=== PATIENT | male | born 1940 | race Caucasian/White ===

== ENCOUNTER 2018-08-31 11:46 | Emergency (ER) | payer OTHER ==
[~2018-08-31] VITALS: Ht 167.6 cm; Wt 81.6 kg
[2018-08-31 11:53] VITALS: Ht 167.6 cm; Wt 81.6 kg
[2018-08-31 16:14] VITALS: BP 192/86
== END 2018-08-31 16:14 | disposition home or self-care (01) ==
LOC: ED 11:46
DX: S69.91XA Unspecified injury of right wrist, hand and finger(s), initial encounter (principal); S99.921A Unspecified injury of right foot, initial encounter; I73.9 Peripheral vascular disease, unspecified; Z86.73 Personal history of transient ischemic attack (TIA), and cerebral infarction without residual deficits; Z98.890 Other specified postprocedural states; X58.XXXA Exposure to other specified factors, initial encounter; Y93.89 Activity, other specified; Y92.89 Other specified places as the place of occurrence of the external cause; Y99.8 Other external cause status
CPT/HCPCS: Q0092